=== PATIENT | female | born 1985 | race Caucasian/White ===

== ENCOUNTER 2018-05-08 23:10 | Observation (INO) | payer MEDICAID, MEDICARE ==
[~2018-05-08] VITALS: Ht 172.7 cm; Wt 56.2 kg
[2018-05-08] MEDS ORDERED: ZOLP-413 PO (23:28)
[2018-05-08] MEDS ORDERED: CLON1TAB11 PO (23:29)
[2018-05-08] MEDS ORDERED: EFFEXOR (23:30)
[2018-05-08] MEDS ORDERED: KEPPRA (23:31)
[2018-05-08] MEDS ORDERED: SEROQUEL (23:31)
[2018-05-08] MEDS: PLEASE ENTER ALLERGIES MC SCH (23:45)
[2018-05-08] MEDS ORDERED: LIDOCAINE-MPF 1%, 5ML ONE (23:59)
[2018-05-08] MEDS ORDERED: DIPH,PERTUSS(ACELL),TET VAC/PF 0.5 ML IM-VACC ONE (23:59)
[2018-05-09] MEDS ORDERED: LIDOCAINE-MPF 1%, 5ML INFIL ONE
[2018-05-09] MEDS ORDERED: DIPH,PERTUSS(ACELL),TET VAC/PF 0.5 ML IM-VACC ONE
[2018-05-09 00:09] LABS: BASOPHILS # (AUTO) 0.05 x10^3/uL (0-0.1); BASOPHILS % (AUTO) 1 % (0-1); EOSINOPHILS # (AUTO) 0.09 x10^3/uL (0-0.4); EOSINOPHILS % (AUTO) 1 % (1-7); LYMPHOCYTES # (AUTO) 2.14 x10^3/uL (1-3.4); LYMPHOCYTES % (AUTO) 23 % (22-44); MD NO; MEAN CORPUSCULAR HEMOGLOBIN 29.3 pg (27.0-34.8); MEAN CORPUSCULAR HGB CONC 34.5 g/dL (32.4-35.8); MEAN PLATELET VOLUME 8.3 fL (7.4-10.4); MONOCYTES # (AUTO) 0.65 x10^3/uL (0.2-0.8); MONOCYTES % (AUTO) 7 % (2-9); NEUTROPHILS # (AUTO) 6.45 x10^3/uL (1.8-6.8); NEUTROPHILS % (AUTO) 69 % (42-75); PLATELET COUNT 326 x10^3/uL (130-400); RED BLOOD COUNT 4.29 x10^6/uL (3.82-5.3); RED CELL DISTRIBUTION WIDTH 13.2 % (9.6-15.2)
[2018-05-09 00:10] LABS: MICROSCOPIC INDICATED
[2018-05-09 00:11] LABS: CULTURE INDICATED? YES
[2018-05-09 00:19] LABS: ACETAMINOPHEN < 2 mcg/mL (10-30); ALBUMIN 3.6 g/dL (3.4-5.0); ANION GAP 5 mmol/L (5-15); CALCIUM 8.8 mg/dL (8.5-10.1); CHLORIDE 106 mmol/L (98-107); CREATININE 0.85 mg/dL (0.55-1.02); SALICYLATE LEVEL < 1.7 mg/dL (2.8-20.0)
[2018-05-09 00:21] LABS: AMPHETAMINE SCREEN, URINE Negative (Negative); BARBITURATE SCREEN, URINE Negative (Negative); BENZODIAZEPINE SCREEN, URINE Negative (Negative); CANNABINOID SCREEN, URINE Positive (Negative); COCAINE SCREEN, URINE Negative (Negative); METHADONE SCREEN, URINE Negative (Negative); OPIATE SCREEN, URINE Negative (Negative)
[2018-05-09] MEDS: PLEASE ENTER ALLERGIES MC SCH (02:59)
[2018-05-09] MEDS ORDERED: LORazepam 1MG TABLET ONE ×2 (05:53→06:38)
[2018-05-09] MEDS ORDERED: LORazepam 1MG TABLET PO ONE ×2 (06:00→07:00)
[2018-05-09] MEDS ORDERED: QUETIAPINE 100MG TABLET ONE (07:15)
[2018-05-09] MEDS ORDERED: ZIPRASIDONE 20 MG INJ IM ONE ×2 (07:21→07:30)
[2018-05-09] MEDS ORDERED: HALOPERIDOL 5 MG/ML ONE ×3 (07:26→08:45)
[2018-05-09] MEDS ORDERED: HALOPERIDOL 5 MG/ML IM PRN ×3 (07:30→09:00)
[2018-05-09] MEDS ORDERED: QUETIAPINE 100MG TABLET PO SCH (09:00)
[2018-05-09] MEDS ORDERED: VENLAFAXINE 75MG TABLET PO SCH (09:00)
[2018-05-09] MEDS ORDERED: DOCUSATE 100 MG CAPSULE PO PRN (13:30)
[2018-05-09] MEDS ORDERED: ACETAMINOPHEN 325 MG TABLET PO PRN (13:30)
[2018-05-09] MEDS ORDERED: LEVETIRACETAM 500 MG TABLET ONE (20:27)
[2018-05-09] MEDS ORDERED: ZOLPIDEM 5MG TABLET ONE (20:27)
[2018-05-09] MEDS ORDERED: QUETIAPINE 25MG TABLET ONE (20:27)
[2018-05-09] MEDS: LEVETIRACETAM 500 MG TABLET PO SCH (20:38)
[2018-05-09] MEDS: QUETIAPINE 25MG TABLET PO SCH (20:38)
[2018-05-09] MEDS: ZOLPIDEM 5MG TABLET PO SCH (20:38)
[2018-05-10] MEDS: VENLAFAXINE 75 MG CAP ER PO SCH (09:00)
[2018-05-10] MEDS ORDERED: LEVETIRACETAM 500 MG TABLET ONE ×2 (12:34→19:25)
[2018-05-10] MEDS: LEVETIRACETAM 500 MG TABLET PO SCH ×2 (12:41→19:31)
[2018-05-10] MEDS ORDERED: QUETIAPINE 25MG TABLET ONE (19:24)
[2018-05-10] MEDS ORDERED: ZOLPIDEM 5MG TABLET ONE (19:25)
[2018-05-10] MEDS: QUETIAPINE 25MG TABLET PO SCH (19:31)
[2018-05-10] MEDS: ZOLPIDEM 5MG TABLET PO SCH (19:32)
[2018-05-10] MEDS ORDERED: ZIPRASIDONE 20 MG INJ IM ONE (20:00)
[2018-05-10] MEDS ORDERED: LOPERAMIDE 2 MG CAPSULE PO ONE (20:00)
[2018-05-10] MEDS ORDERED: ZIPRASIDONE 20 MG INJ IM PRN (20:30)
[2018-05-11] MEDS ORDERED: ASPIRIN 81 MG TABLET CHEW ONE (08:52)
[2018-05-11] MEDS ORDERED: BACITRACIN ZINC OINT 500U/GM, 0.9 GM ONE (09:17)
[2018-05-11] MEDS ORDERED: LEVETIRACETAM 500 MG TABLET ONE (09:59)
[2018-05-11] MEDS: VENLAFAXINE 75 MG CAP ER PO SCH (10:19)
[2018-05-11] MEDS: LEVETIRACETAM 500 MG TABLET PO SCH (10:19)
[2018-05-11] MEDS ORDERED: QUET25TA PO (13:21)
[2018-05-11] MEDS ORDERED: CLON1TAB11 PO (13:21)
[2018-05-11] MEDS ORDERED: VENL75CA6 PO (13:21)
[2018-05-11] MEDS ORDERED: LEVE500T53 PO (13:21)
[2018-05-11] MEDS ORDERED: ZOLP5TAB PO (13:21)
[2018-05-11 13:40] VITALS: BP 99/57
== END 2018-05-11 15:56 ==
LOC: ED 05-09 01:22 → EDIP 05-09 06:11
PROVIDERS: ADMIT Internal Medicine; ATTEND Internal Medicine
DX: F31.9 Bipolar disorder, unspecified (principal); G40.909 Epilepsy, unspecified, not intractable, without status epilepticus; F17.210 Nicotine dependence, cigarettes, uncomplicated; S81.811A Laceration without foreign body, right lower leg, initial encounter; X78.9XXA Intentional self-harm by unspecified sharp object, initial encounter; Z79.899 Other long term (current) drug therapy; Z88.8 Allergy status to other drugs, medicaments and biological substances; Y92.89 Other specified places as the place of occurrence of the external cause; Y93.89 Activity, other specified
CPT/HCPCS: 12002; 36415; 80048; 80307; 80329; 81001; 81025; 82040; 85025; 86803; 87086; 87340; 87806; 90471; 90715; 96372; 99285; G0378; J1630; G0475; G0480